=== PATIENT | female | born 1975 | race Caucasian/White ===

== ENCOUNTER 2017-05-07 01:45 | Observation (INO) | payer OTHER, MEDICAID ==
[~2017-05-07] VITALS: Ht 160 cm; Wt 59.0 kg
[~2017-05-07 01:45] MED LIST: AMOXICILLIN 50500 MG PO; ATIVAN1 MG PO; B-COMPLEX-VITA1 EACH PO; BENZONATATE100 MG PO; CEFDINIR300 MG PO; DIFLUCAN150 MG PO; DIPHENHIST50 MG PO; FIORICET 50-301 EACH PO; FLEXERIL PO; HYDROCODONE-AP1 EAC6 PO; HYDROCORTISONE5 MG PO; IBUPROFEN 600600 M1 PO; LINZESS290 MCG PO; LINZESS72 MCG PO; MEDROLDOSEPACK PO; NAPROSYN500 MG PO; NORCO 5-325 TA1 EACH PO; ONDANSETRON HCL4 M2 PO; PAMELOR; PREDNISONE 20 M20 M1 PO; PYRIDIUM100 M1 PO; ROBAXIN500 MG PO; TESSALON PERLE100 MG PO; TOPAMAX 25 MG T25 M1 PO; TRAMADOL 50 MG50 MG PO; ULTRAM 50MG TAB50 MG PO; UNISOM50 MG PO; VALERIAN450 MG PO; VITAMIN B-12500 MCG SL; VITAMIN D2000 UNIT; XANAX 0.25 MG0.25 MG PO; XANAX 0.5 MG0.5 MG PO; XARELTO15 MG PO; ZOFRAN ODT4 MG PO; ZOFRAN4 MG PO; [UNRECOGNIZED DRUG - REMARK]
[2017-05-07 01:51] VITALS: BP 140/85
[2017-05-07 02:26] LABS: ABSOLUTE LYMPHOCYTES 1.5 thou/uL (0.8-5.3); ABSOLUTE MONOCYTES 0.2 thou/uL (0.0-1.2); ABSOLUTE NEUTROPHILS 3.5 thou/uL (1.6-8.1); BASOPHILS 0.6 %; EOSINOPHILS 0.2 %; HEMATOCRIT 37.1 % (37.0-47.0); HEMOGLOBIN 12.2 gm/dL (12.0-15.0); LYMPHOCYTES 28.7 %; MCH 27.2 pg (26.0-34.0); MCHC 32.9 g/dL (28.0-37.0); MCV 82.6 fL (80.0-100.0); MONOCYTES 4.1 %; MPV 8.9 fl. (7.2-11.1); NUCLEATED RBCS 0 /100WBC; PLATELET COUNT* 171 thou/uL (150-400); POLYS 66.4 %; RDW-CV 15.3 % (10.5-14.5); WBC 5.3 thou/uL (4.0-11.0)
[2017-05-07 02:46] LABS: ANION GAP 9 mmol/L (7-16); BUN 4 mg/dL (7-18); CALCIUM 8.5 mg/dL (8.5-10.1); CHLORIDE 103 mmol/L (98-107); CO2 27 mmol/L (21-32); GLUCOSE 107 mg/dL (70-99); SODIUM 139 mmol/L (136-145)
[2017-05-07 02:47] LABS: POTASSIUM 2.6 mmol/L (3.5-5.1)
[2017-05-07 02:49] LABS: INFLUENZA A ANTIGEN None Detected (None Detect)
[2017-05-07 02:52] LABS: ALKALINE PHOSPHATASE 90 U/L (46-116); LIPASE 188 U/L (73-393); SGOT 14 U/L (15-37); SGPT 14 U/L (30-65)
[2017-05-07 02:53] LABS: ALBUMIN 3.4 g/dL (3.4-5.0); TOTAL BILIRUBIN < 0.1 mg/dL (<0.1-1.0); TOTAL PROTEIN 6.7 g/dL (6.4-8.2)
[2017-05-07 04:58] VITALS: BP 135/68
[2017-05-07 05:00] LABS: URINE BILIRUBIN NEGATIVE (Negative); URINE BLOOD 1+ (Negative); URINE CLARITY CLEAR; URINE COLOR YELLOW; URINE GLUCOSE-RANDOM NEGATIVE (Negative); URINE KETONES NEGATIVE (Negative); URINE LEUKOCYTES-REFLEX NEGATIVE (Negative); URINE NITRITE-REFLEX NEGATIVE (Negative); URINE PROTEIN NEGATIVE (Negative); URINE UROBILINOGEN 0.2 E.U./dl (0.2-1.0)
[2017-05-07 05:18] LABS: BACTERIA-REFLEX 1-9 Few /HPF (None Seen); CASTS None Seen /LPF (None Seen); CRYSTALS None Seen /LPF (None Seen); MUCUS 4-6 Moderate strn/LPF (None Seen); SQUAMOUS 4-10 Moderate /LPF (0-3); URINE RBC 3-10 Few /HPF (0-2); URINE WBC-REFLEX 0-5 Rare /HPF (0-5)
[2017-05-07 08:46] VITALS: BP 143/83
[2017-05-07 10:28] VITALS: BP 143/83
[2018-01-02] MEDS ORDERED: FOLIC ACID 40400 MC1 PO ×2 (16:50)
[2018-01-02] MEDS ORDERED: CORTEF10 MG PO ×2 (16:50)
[2018-01-02] MEDS ORDERED: VITAMIN D3400 UNIT PO ×3 (16:50→16:54)
[2018-01-02] MEDS ORDERED: VENLAFAXIN37.5 MG/1 PO ×2 (16:50)
[2018-01-02] MEDS ORDERED: MELATONIN3 MG PO ×2 (16:50)
[2018-01-02] MEDS ORDERED: DURAGESIC1 EAC2 TRANSDERM ×2 (16:50)
[2018-01-02] MEDS ORDERED: XANAX1 MG PO ×3 (16:50→16:52)
[2018-01-02] MEDS ORDERED: OMEPRAZOLE20 M2 PO ×2 (16:50)
== END 2017-05-07 14:42 | disposition home or self-care (01) ==
LOC: M.ERS 01:45 → M.2W 03:30 → M.TBA-ER 03:30 → M.2W 03:30
PROVIDERS: Emergency Medicine; ADMIT Internal Medicine
DX: J11.00 Influenza due to unidentified influenza virus with unspecified type of pneumonia (principal); G62.9 Polyneuropathy, unspecified; E27.40 Unspecified adrenocortical insufficiency; K58.9 Irritable bowel syndrome, unspecified; F32.9 Major depressive disorder, single episode, unspecified; F41.0 Panic disorder [episodic paroxysmal anxiety]; G93.5 Compression of brain; K21.9 Gastro-esophageal reflux disease without esophagitis; Z87.891 Personal history of nicotine dependence; Z86.711 Personal history of pulmonary embolism

== ENCOUNTER → 2017-05-15 | Outpatient (CLI) | payer OTHER, MEDICAID ==
[~2017-05-15] MED LIST changes: +BACTRIM DS TAB1 EACH PO; +CORTEF10 MG PO; +DURAGESIC1 EAC2 TRANSDERM; +FOLIC ACID 40400 MC1 PO; +FOLIC ACID0.4 MG PO; +MELATONIN3 MG PO; +MELATONIN5 M1 PO; +MIRALAX17 GM; +OMEPRAZOLE20 M2 PO; +OMEPRAZOLE40 MG PO; +ONDANSETRON HCL4 M2; +RELISTOR150 MG; +SLEEP AID50 MG PO; +TRULANCE3 MG; +VALERIAN ROOT100 MG PO; +VENLAFAXIN37.5 MG/1 PO; +VENTOLIN HFA 1818 GM INH; +VITAMIN D3400 UNIT PO; +WOMEN MULTIVIT1 EACH PO; +XANAX1 MG PO; +XARELTO20 MG; +ZOFRAN ODT4 MG DISSOLVE; +ZPAK PO
== END ==
LOC: M.ULTRA 13:00
DX: Z12.31 Encounter for screening mammogram for malignant neoplasm of breast (principal); Z86.711 Personal history of pulmonary embolism; Z86.718 Personal history of other venous thrombosis and embolism

== ENCOUNTER → 2017-05-29 | Outpatient (CLI) | payer OTHER, MEDICAID ==
[2017-05-29 16:48] LABS: CALCIUM 9.2 mg/dL (8.5-10.1); CREATININE 0.8 mg/dL (0.6-1.3); POTASSIUM 4.4 mmol/L (3.5-5.1)
== END ==
LOC: M.LAB 15:55
DX: N28.1 Cyst of kidney, acquired (principal); E27.40 Unspecified adrenocortical insufficiency

== ENCOUNTER → 2017-06-09 | Outpatient (CLI) | payer OTHER, MEDICAID | LOC: M.ULTRA 08:00 | DX: K76.0 Fatty (change of) liver, not elsewhere classified (principal) ==

== ENCOUNTER → 2017-06-19 | Outpatient (CLI) | payer OTHER, MEDICAID | LOC: M.RAD 10:57 | DX: K59.09 Other constipation (principal); E27.40 Unspecified adrenocortical insufficiency ==

== ENCOUNTER 2017-07-19 19:03 | Emergency (ER) | payer OTHER, MEDICAID ==
[~2017-07-19] VITALS: Ht 162.6 cm; Wt 63.5 kg
[~2017-07-19 19:03] MED LIST changes: -BACTRIM DS TAB1 EACH PO; -CORTEF10 MG PO; -DURAGESIC1 EAC2 TRANSDERM; -FOLIC ACID 40400 MC1 PO; -FOLIC ACID0.4 MG PO; -MELATONIN3 MG PO; -MELATONIN5 M1 PO; -MIRALAX17 GM; -OMEPRAZOLE20 M2 PO; -OMEPRAZOLE40 MG PO; -ONDANSETRON HCL4 M2; -RELISTOR150 MG; -SLEEP AID50 MG PO; -TRULANCE3 MG; -VALERIAN ROOT100 MG PO; -VENLAFAXIN37.5 MG/1 PO; -VENTOLIN HFA 1818 GM INH; -VITAMIN D3400 UNIT PO; -WOMEN MULTIVIT1 EACH PO; -XANAX1 MG PO; -XARELTO20 MG; -ZOFRAN ODT4 MG DISSOLVE; -ZPAK PO
[2017-07-19 19:43] LABS: ABSOLUTE EOSINOPHILS 0.1 thou/uL (0.0-0.7); ABSOLUTE LYMPHOCYTES 3.1 thou/uL (0.8-5.3); ABSOLUTE MONOCYTES 0.6 thou/uL (0.0-1.2); ABSOLUTE NEUTROPHILS 4.2 thou/uL (1.6-8.1); BASOPHILS 0.5 %; EOSINOPHILS 1.8 %; HEMOGLOBIN 10.8 gm/dL (12.0-15.0); LYMPHOCYTES 38.7 %; MCHC 32.7 g/dL (28.0-37.0); MCV 85.6 fL (80.0-100.0); MPV 8.8 fl. (7.2-11.1); NUCLEATED RBCS 0 /100WBC; PLATELET COUNT* 192 thou/uL (150-400); RBC 3.85 mil/uL (4.20-5.00); RDW-CV 15.1 % (10.5-14.5)
[2017-07-19 19:51] LABS: ANION GAP 6 mmol/L (7-16); BUN 8 mg/dL (7-18); CALCIUM 8.8 mg/dL (8.5-10.1); CHLORIDE 104 mmol/L (98-107); CO2 31 mmol/L (21-32); CREATININE 0.8 mg/dL (0.6-1.3); GLUCOSE 89 mg/dL (70-99); POTASSIUM 3.9 mmol/L (3.5-5.1); SODIUM 141 mmol/L (136-145)
[2017-07-19 19:52] LABS: INR 1.1; PROTIME 11.1 Seconds (9.20-11.50)
[2017-07-19 20:02] LABS: ALBUMIN 3.3 g/dL (3.4-5.0); ALKALINE PHOSPHATASE 101 U/L (46-116); LIPASE 144 U/L (73-393); NT-PRO BRAIN NAT PEPTIDE 34 pg/mL (<300); SGOT 26 U/L (15-37); SGPT 28 U/L (30-65); TOTAL BILIRUBIN 0.1 mg/dL (<0.1-1.0); TOTAL PROTEIN 6.6 g/dL (6.4-8.2); TROPONIN-I LEVEL <0.06 ng/mL (<0.06)
[2017-07-19] MEDS ORDERED: XARELTO20 MG (20:02)
[2017-07-19] MEDS ORDERED: MIRALAX17 GM (20:03)
[2017-07-19 21:39] VITALS: BP 111/68
--- NOTE | 2017-07-20 10:07 | EKG ---
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: LINDA : 1975 Requested By: Fay Alonzo Order Number: [id number] MD: José Laguna Measurements Intervals [place] Rate: 93 P: 65 [place]: 127 QRS: 67 QRSD: 95 T: 53 QT: 362 QTc: 451 Interpretive Statements Sinus rhythm Probable left atrial enlargement RSR' in V1 or V2, right VCD or RVH Nonspecific T abnormalities, lateral leads Compared to ECG 08/25/2014 08:17:03 RSR' in V1 or V2 now present Electronically Signed On 07-20-2017 10:07:43 CDT by José Laguna [email or web address] <ELECTRONICALLY SIGNED> By: José Laguna MD, [facility] 07/20/17 1007 191 09 José Laguna MD, [facility] /EPI
== END 2017-07-19 21:40 | disposition home or self-care (01) ==
LOC: M.ERS 19:03
PROVIDERS: Emergency Medicine
DX: R07.89 Other chest pain (principal); R05 Cough; F41.0 Panic disorder [episodic paroxysmal anxiety]; K21.9 Gastro-esophageal reflux disease without esophagitis; F32.9 Major depressive disorder, single episode, unspecified; M79.7 Fibromyalgia; Z98.890 Other specified postprocedural states; Z88.8 Allergy status to other drugs, medicaments and biological substances

== ENCOUNTER → 2017-10-16 | Outpatient (CLI) | payer OTHER, MEDICAID ==
[~2017-10-16] MED LIST changes: +BACTRIM DS TAB1 EACH PO; +CORTEF10 MG PO; +DURAGESIC1 EAC2 TRANSDERM; +FOLIC ACID 40400 MC1 PO; +FOLIC ACID0.4 MG PO; +MELATONIN3 MG PO; +MELATONIN5 M1 PO; +MIRALAX17 GM; +OMEPRAZOLE20 M2 PO; +OMEPRAZOLE40 MG PO; +ONDANSETRON HCL4 M2; +RELISTOR150 MG; +SLEEP AID50 MG PO; +TRULANCE3 MG; +VALERIAN ROOT100 MG PO; +VENLAFAXIN37.5 MG/1 PO; +VENTOLIN HFA 1818 GM INH; +VITAMIN D3400 UNIT PO; +WOMEN MULTIVIT1 EACH PO; +XANAX1 MG PO; +XARELTO20 MG; +ZOFRAN ODT4 MG DISSOLVE; +ZPAK PO
== END ==
LOC: M.ULTRA 10-13 17:30 → M.CT 15:00 → M.ULTRA 10-19 10:30
DX: M79.89 Other specified soft tissue disorders (principal); R06.02 Shortness of breath; R51 Headache; Z86.711 Personal history of pulmonary embolism; Z86.718 Personal history of other venous thrombosis and embolism

== ENCOUNTER → 2017-10-22 | Outpatient (CLI) | payer OTHER, MEDICAID ==
[2017-10-22 16:05] LABS: URINE BILIRUBIN NEGATIVE (Negative); URINE BLOOD 1+ (Negative); URINE CLARITY CLEAR; URINE COLOR YELLOW; URINE GLUCOSE-RANDOM NEGATIVE (Negative); URINE KETONES NEGATIVE (Negative); URINE LEUKOCYTES NEGATIVE (Negative); URINE NITRITE NEGATIVE (Negative); URINE PROTEIN NEGATIVE (Negative); URINE SPECIFIC GRAVITY 1.025 (1.005-1.030); URINE UROBILINOGEN 0.2 E.U./dl (0.2-1.0)
[2017-10-22 16:18] LABS: BACTERIA 1-9 Few /HPF (None Seen); MUCUS 0-3 Light strn/LPF (None Seen); SQUAMOUS >10 Many /LPF (0-3); URINE RBC 0-2 Rare /HPF (0-2)
[2017-10-22 16:20] LABS: CASTS None Seen /LPF (None Seen); CRYSTALS None Seen /LPF (None Seen); URINE WBC 0-5 Rare /HPF (0-5)
== END ==
LOC: M.LAB 15:37
PROVIDERS: Obstetrics & Gynecology
DX: R39.89 Other symptoms and signs involving the genitourinary system (principal)

== ENCOUNTER → 2017-10-23 | Outpatient (CLI) | payer OTHER, MEDICAID ==
[2017-10-28 03:12] LABS: EBV EA IgG <9.0 U/mL (0.0-8.9); EBV VCA IgM <36.0 U/mL (0.0-35.9)
== END ==
LOC: M.LAB 15:30
PROVIDERS: Obstetrics & Gynecology
DX: R53.83 Other fatigue (principal)

== ENCOUNTER 2017-10-27 19:46 | Emergency (ER) | payer OTHER, MEDICAID ==
[~2017-10-27] VITALS: Ht 162.6 cm; Wt 64.9 kg
[~2017-10-27 19:46] MED LIST changes: -BACTRIM DS TAB1 EACH PO; -CORTEF10 MG PO; -DURAGESIC1 EAC2 TRANSDERM; -FOLIC ACID 40400 MC1 PO; -FOLIC ACID0.4 MG PO; -MELATONIN3 MG PO; -MELATONIN5 M1 PO; -OMEPRAZOLE20 M2 PO; -OMEPRAZOLE40 MG PO; -ONDANSETRON HCL4 M2; -RELISTOR150 MG; -SLEEP AID50 MG PO; -TRULANCE3 MG; -VALERIAN ROOT100 MG PO; -VENLAFAXIN37.5 MG/1 PO; -VENTOLIN HFA 1818 GM INH; -VITAMIN D3400 UNIT PO; -WOMEN MULTIVIT1 EACH PO; -XANAX1 MG PO; -ZOFRAN ODT4 MG DISSOLVE; -ZPAK PO
[2017-10-27 20:38] LABS: ABSOLUTE BASOPHILS 0.1 thou/uL (0.0-0.2); ABSOLUTE EOSINOPHILS 0.2 thou/uL (0.0-0.7); ABSOLUTE LYMPHOCYTES 3.5 thou/uL (0.8-5.3); ABSOLUTE MONOCYTES 0.5 thou/uL (0.0-1.2); ABSOLUTE NEUTROPHILS 3.8 thou/uL (1.6-8.1); BASOPHILS 0.7 %; HEMOGLOBIN 10.9 gm/dL (12.0-15.0); LYMPHOCYTES 43.7 %; MCH 26.4 pg (26.0-34.0); MCV 82.6 fL (80.0-100.0); MONOCYTES 6.2 %; MPV 8.3 fl. (7.2-11.1); NUCLEATED RBCS 0 /100WBC; PLATELET COUNT* 228 thou/uL (150-400); POLYS 47.4 %; RBC 4.12 mil/uL (4.20-5.00); RDW-CV 14.8 % (10.5-14.5)
[2017-10-27 20:50] LABS: CALCIUM 8.6 mg/dL (8.5-10.1); CREATININE 0.9 mg/dL (0.6-1.3); POTASSIUM 3.5 mmol/L (3.5-5.1)
[2017-10-27 20:55] LABS: ALBUMIN 3.7 g/dL (3.4-5.0); TOTAL BILIRUBIN 0.2 mg/dL (<0.1-1.0); TOTAL PROTEIN 7.4 g/dL (6.4-8.2)
[2017-10-27 21:24] LABS: URINE BILIRUBIN NEGATIVE (Negative); URINE BLOOD 1+ (Negative); URINE CLARITY CLEAR; URINE COLOR STRAW; URINE GLUCOSE-RANDOM NEGATIVE (Negative); URINE KETONES NEGATIVE (Negative); URINE LEUKOCYTES-REFLEX NEGATIVE (Negative); URINE NITRITE-REFLEX NEGATIVE (Negative); URINE PROTEIN NEGATIVE (Negative); URINE SPECIFIC GRAVITY <= 1.005 (1.005-1.030); URINE UROBILINOGEN 0.2 E.U./dl (0.2-1.0)
[2017-10-27 21:30] LABS: AMP/METHAMP Negative (Negative); BARBITURATES Negative (Negative); BENZODIAZEPINES POSITIVE (Negative); COCAINE Negative (Negative); METHADONE Negative (Negative); OPIATES Negative (Negative); PCP Negative (Negative); THC Negative (Negative)
[2017-10-27 21:42] LABS: BACTERIA-REFLEX 1-9 Few /HPF (None Seen); CASTS None Seen /LPF (None Seen); CRYSTALS None Seen /LPF (None Seen); SQUAMOUS 4-10 Moderate /LPF (0-3); URINE RBC 3-10 Few /HPF (0-2); URINE WBC-REFLEX 0-5 Rare /HPF (0-5)
[2017-10-27 22:14] VITALS: BP 113/78
== END 2017-10-27 22:15 | disposition home or self-care (01) ==
LOC: M.ERS 19:46
PROVIDERS: Nurse Practitioner Family
DX: R19.7 Diarrhea, unspecified (principal); I50.9 Heart failure, unspecified; F32.9 Major depressive disorder, single episode, unspecified; F41.9 Anxiety disorder, unspecified; K21.9 Gastro-esophageal reflux disease without esophagitis; M79.7 Fibromyalgia; Z88.8 Allergy status to other drugs, medicaments and biological substances

== ENCOUNTER → 2017-11-01 | Outpatient (CLI) | payer OTHER, MEDICAID ==
[~2017-11-01] MED LIST changes: +BACTRIM DS TAB1 EACH PO; +CORTEF10 MG PO; +DURAGESIC1 EAC2 TRANSDERM; +FOLIC ACID 40400 MC1 PO; +FOLIC ACID0.4 MG PO; +MELATONIN3 MG PO; +MELATONIN5 M1 PO; +OMEPRAZOLE20 M2 PO; +OMEPRAZOLE40 MG PO; +ONDANSETRON HCL4 M2; +RELISTOR150 MG; +SLEEP AID50 MG PO; +TRULANCE3 MG; +VALERIAN ROOT100 MG PO; +VENLAFAXIN37.5 MG/1 PO; +VENTOLIN HFA 1818 GM INH; +VITAMIN D3400 UNIT PO; +WOMEN MULTIVIT1 EACH PO; +XANAX1 MG PO; +ZOFRAN ODT4 MG DISSOLVE; +ZPAK PO
[2017-11-01 17:16] LABS: ABSOLUTE BASOPHILS 0.1 thou/uL (0.0-0.2); ABSOLUTE EOSINOPHILS 0.1 thou/uL (0.0-0.7); ABSOLUTE LYMPHOCYTES 2.3 thou/uL (0.8-5.3); ABSOLUTE MONOCYTES 0.3 thou/uL (0.0-1.2); ABSOLUTE NEUTROPHILS 3.4 thou/uL (1.6-8.1); BASOPHILS 0.8 %; EOSINOPHILS 1.1 %; HEMATOCRIT 35.6 % (37.0-47.0); HEMOGLOBIN 11.2 gm/dL (12.0-15.0); LYMPHOCYTES 37.6 %; MCH 26.5 pg (26.0-34.0); MCHC 31.6 g/dL (28.0-37.0); MCV 83.8 fL (80.0-100.0); MONOCYTES 4.6 %; MPV 9.1 fl. (7.2-11.1); NUCLEATED RBCS 0 /100WBC; PLATELET COUNT* 220 thou/uL (150-400); POLYS 55.9 %; RBC 4.24 mil/uL (4.20-5.00); RDW-CV 14.7 % (10.5-14.5); WBC 6.1 thou/uL (4.0-11.0)
[2017-11-01 17:27] LABS: ALBUMIN 3.8 g/dL (3.4-5.0); CALCIUM 8.7 mg/dL (8.5-10.1); CREATININE 0.8 mg/dL (0.6-1.3); POTASSIUM 3.9 mmol/L (3.5-5.1); TOTAL BILIRUBIN 0.2 mg/dL (<0.1-1.0); TOTAL PROTEIN 7.7 g/dL (6.4-8.2)
[2017-11-01 18:18] LABS: ESR (SEDRATE) 12 mm/hr (0-20)
== END ==
LOC: M.LAB 14:04
DX: R53.83 Other fatigue (principal); R41.0 Disorientation, unspecified

== ENCOUNTER 2018-01-02 16:17 | Emergency (ER) | payer OTHER, MEDICAID ==
[~2018-01-02] VITALS: Ht 162.6 cm; Wt 59.0 kg
[~2018-01-02 16:17] MED LIST changes: -BACTRIM DS TAB1 EACH PO; -CORTEF10 MG PO; -DURAGESIC1 EAC2 TRANSDERM; -FOLIC ACID 40400 MC1 PO; -FOLIC ACID0.4 MG PO; -MELATONIN3 MG PO; -MELATONIN5 M1 PO; -OMEPRAZOLE20 M2 PO; -OMEPRAZOLE40 MG PO; -ONDANSETRON HCL4 M2; -RELISTOR150 MG; -SLEEP AID50 MG PO; -TRULANCE3 MG; -VALERIAN ROOT100 MG PO; -VENLAFAXIN37.5 MG/1 PO; -VENTOLIN HFA 1818 GM INH; -VITAMIN D3400 UNIT PO; -WOMEN MULTIVIT1 EACH PO; -XANAX1 MG PO; -ZOFRAN ODT4 MG DISSOLVE; -ZPAK PO
[2018-01-02] MEDS ORDERED: MELATONIN3 MG PO (16:50)
[2018-01-02] MEDS ORDERED: FOLIC ACID 40400 MC1 PO (16:50)
[2018-01-02] MEDS ORDERED: RELISTOR150 MG (16:50)
[2018-01-02] MEDS ORDERED: CORTEF10 MG PO (16:50)
[2018-01-02] MEDS ORDERED: XANAX1 MG PO ×2 (16:50→16:52)
[2018-01-02] MEDS ORDERED: DURAGESIC1 EAC2 TRANSDERM (16:50)
[2018-01-02] MEDS ORDERED: VENLAFAXIN37.5 MG/1 PO (16:50)
[2018-01-02] MEDS ORDERED: OMEPRAZOLE20 M2 PO (16:50)
[2018-01-02] MEDS ORDERED: VITAMIN D3400 UNIT PO ×2 (16:50→16:54)
[2018-01-02] MEDS ORDERED: TRULANCE3 MG (16:51)
[2018-01-02] MEDS ORDERED: ONDANSETRON HCL4 M2 (16:51)
[2018-01-02] MEDS ORDERED: ZOFRAN ODT4 MG DISSOLVE (16:51)
[2018-01-02] MEDS ORDERED: WOMEN MULTIVIT1 EACH PO (16:51)
[2018-01-02] MEDS ORDERED: OMEPRAZOLE40 MG PO (16:52)
[2018-01-02] MEDS ORDERED: VALERIAN ROOT100 MG PO (16:53)
[2018-01-02] MEDS ORDERED: MELATONIN5 M1 PO (16:53)
[2018-01-02] MEDS ORDERED: SLEEP AID50 MG PO (16:54)
[2018-01-02] MEDS ORDERED: FOLIC ACID0.4 MG PO (16:54)
[2018-01-02] MEDS ORDERED: PREDNISONE 20 M20 M1 PO (16:56)
[2018-01-02] MEDS ORDERED: VENTOLIN HFA 1818 GM INH (16:56)
[2018-01-02] MEDS ORDERED: BACTRIM DS TAB1 EACH PO (16:56)
[2018-01-02 17:09] VITALS: BP 121/64
--- NOTE | 2018-01-03 12:56 | EKG ---
[place] [address] ELECTROCARDIOGRAM REPORT Name: JONEL HAILE Room: [facility]#: [id number] Admission: 01/02/18 Attend Phys: Discharge: 01/02/18 Date of : 71 Report #: [id number] THIS REPORT FOR: //name// [facility] ED Test Date: 2018-01-02 Test Time: 16:29:05 Pat Name: JONEL ONEILL Department: Room: Gender: F Manager Animal: Kaitlin CARRION : 1975 Requested By: Endy Brennan Order Number: [id number] MD: Isaias Mcnally Measurements Intervals [place] Rate: 87 P: 73 [place]: 125 QRS: 77 QRSD: 94 T: 49 QT: 375 QTc: 451 Interpretive Statements Sinus rhythm Abnormal R-wave progression, early transition Compared to ECG 07/19/2017 19:10:02 Right ventricular hypertrophy no longer present T-wave abnormality no longer present Electronically Signed On 01-03-2018 12:56:02 CDT by Isaias Mcnally [email or web address] <ELECTRONICALLY SIGNED> By: Isaias Mcnally MD, FAC 01/03/18 1256 [id number] [id number] Isaias Mcnally MD, [facility] /EPI
== END 2018-01-02 17:10 | disposition home or self-care (01) ==
LOC: M.ERS 16:17
DX: J40 Bronchitis, not specified as acute or chronic (principal); F41.0 Panic disorder [episodic paroxysmal anxiety]; I50.9 Heart failure, unspecified; K21.9 Gastro-esophageal reflux disease without esophagitis; F32.9 Major depressive disorder, single episode, unspecified; M79.7 Fibromyalgia; Z88.8 Allergy status to other drugs, medicaments and biological substances

== ENCOUNTER → 2018-01-07 | Outpatient (CLI) | payer OTHER, MEDICAID ==
[~2018-01-07] MED LIST changes: +BACTRIM DS TAB1 EACH PO; +CORTEF10 MG PO; +DURAGESIC1 EAC2 TRANSDERM; +FOLIC ACID 40400 MC1 PO; +FOLIC ACID0.4 MG PO; +MELATONIN3 MG PO; +MELATONIN5 M1 PO; +OMEPRAZOLE20 M2 PO; +OMEPRAZOLE40 MG PO; +ONDANSETRON HCL4 M2; +RELISTOR150 MG; +SLEEP AID50 MG PO; +TRULANCE3 MG; +VALERIAN ROOT100 MG PO; +VENLAFAXIN37.5 MG/1 PO; +VENTOLIN HFA 1818 GM INH; +VITAMIN D3400 UNIT PO; +WOMEN MULTIVIT1 EACH PO; +XANAX1 MG PO; +ZOFRAN ODT4 MG DISSOLVE; +ZPAK PO
[2018-01-07 17:04] LABS: CALCIUM 8.6 mg/dL (8.5-10.1); CREATININE 0.9 mg/dL (0.6-1.3); POTASSIUM 3.7 mmol/L (3.5-5.1)
== END ==
LOC: M.LAB 16:35
PROVIDERS: Internal Medicine Gastroenterology
DX: K59.00 Constipation, unspecified (principal); F32.9 Major depressive disorder, single episode, unspecified; Z87.891 Personal history of nicotine dependence; Z79.899 Other long term (current) drug therapy; Z88.8 Allergy status to other drugs, medicaments and biological substances

== ENCOUNTER 2018-01-23 21:12 | Emergency (ER) | payer OTHER, MEDICAID ==
[~2018-01-23] VITALS: Ht 160 cm; Wt 63.5 kg
[~2018-01-23 21:12] MED LIST changes: -ZPAK PO
[2018-01-23] MEDS ORDERED: ZPAK PO (21:28)
[2018-01-23 21:38] LABS: ABSOLUTE BASOPHILS 0.1 thou/uL (0.0-0.2); ABSOLUTE EOSINOPHILS 0.2 thou/uL (0.0-0.7); ABSOLUTE LYMPHOCYTES 3.5 thou/uL (0.8-5.3); ABSOLUTE MONOCYTES 0.6 thou/uL (0.0-1.2); ABSOLUTE NEUTROPHILS 3.7 thou/uL (1.6-8.1); BASOPHILS 0.9 %; EOSINOPHILS 2.7 %; HEMATOCRIT 32.8 % (37.0-47.0); HEMOGLOBIN 10.4 gm/dL (12.0-15.0); LYMPHOCYTES 43.1 %; MCHC 31.8 g/dL (28.0-37.0); MCV 81.8 fL (80.0-100.0); MONOCYTES 7.7 %; MPV 8.6 fl. (7.2-11.1); NUCLEATED RBCS 0 /100WBC; PLATELET COUNT* 232 thou/uL (150-400); POLYS 45.6 %; RBC 4.01 mil/uL (4.20-5.00); RDW-CV 15.5 % (10.5-14.5); WBC 8.1 thou/uL (4.0-11.0)
[2018-01-23 21:51] LABS: APTT 24.6 Seconds (25.0-31.3); PROTIME 9.9 Seconds (9.20-11.50)
[2018-01-23 22:02] LABS: CALCIUM 8.7 mg/dL (8.5-10.1); CREATININE 0.9 mg/dL (0.6-1.3); POTASSIUM 3.4 mmol/L (3.5-5.1)
[2018-01-23 22:06] LABS: ALBUMIN 3.5 g/dL (3.4-5.0); TOTAL BILIRUBIN 0.1 mg/dL (<0.1-1.0); TOTAL PROTEIN 6.7 g/dL (6.4-8.2)
[2018-01-23 22:12] LABS: NT-PRO BRAIN NAT PEPTIDE 66 pg/mL (<300); TROPONIN-I LEVEL <0.06 ng/mL (<0.06)
[2018-01-23 22:32] VITALS: BP 108/72
--- NOTE | 2018-01-24 15:00 | EKG ---
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1975 Requested By: Endy Brennan Order Number: [id number] MD: Joey Younger Measurements Intervals [place] Rate: 93 P: 66 [place]: 128 QRS: 65 QRSD: 94 T: 31 QT: 368 QTc: 458 Interpretive Statements Sinus rhythm Probable left atrial enlargement RSR' in V1 or V2, right VCD or RVH Compared to ECG 01/02/2018 16:29:05 Right ventricular hypertrophy now present RSR' in V1 or V2 now present Electronically Signed On 01-24-2018 15:00:24 CDT by Joey Younger [email or web address] <ELECTRONICALLY SIGNED> By: Joey Younger MD, FACC 01/24/18 1500 23 23 Joey Younger MD, FACC /EPI
== END 2018-01-23 22:34 | disposition home or self-care (01) ==
LOC: M.ERS 21:12
PROVIDERS: Family Medicine
DX: R07.89 Other chest pain (principal); R53.1 Weakness; I50.9 Heart failure, unspecified; K58.9 Irritable bowel syndrome, unspecified; K21.9 Gastro-esophageal reflux disease without esophagitis; F32.9 Major depressive disorder, single episode, unspecified; F41.9 Anxiety disorder, unspecified; M79.7 Fibromyalgia; M19.90 Unspecified osteoarthritis, unspecified site; Z88.8 Allergy status to other drugs, medicaments and biological substances; Z98.890 Other specified postprocedural states

== ENCOUNTER → 2018-03-09 | Outpatient (CLI) | payer OTHER, MEDICAID ==
[~2018-03-09] MED LIST changes: +ZPAK PO
== END ==
LOC: M.RAD 15:15
DX: M25.571 Pain in right ankle and joints of right foot (principal)

== ENCOUNTER → 2018-03-11 | Outpatient (CLI) | payer OTHER, MEDICAID | LOC: M.CT 16:29 | DX: R04.2 Hemoptysis (principal); R91.8 Other nonspecific abnormal finding of lung field ==

== ENCOUNTER 2018-03-27 17:57 | Emergency (ER) | payer OTHER, MEDICARE, MEDICAID ==
[~2018-03-27] VITALS: Ht 165.1 cm; Wt 71.7 kg
[2018-03-27] MEDS ORDERED: EFFEXOR 5050 MG/1 T1 PO (18:15)
[2018-03-27] MEDS ORDERED: DURAGESIC1 EAC2 INTRADERM (18:15)
[2018-03-27] MEDS ORDERED: XARELTO20 MG PO (18:17)
[2018-03-27 18:32] LABS: ABSOLUTE BASOPHILS 0.1 thou/uL (0.0-0.2); ABSOLUTE EOSINOPHILS 0.1 thou/uL (0.0-0.7); ABSOLUTE LYMPHOCYTES 2.8 thou/uL (0.8-5.3); ABSOLUTE MONOCYTES 0.6 thou/uL (0.0-1.2); ABSOLUTE NEUTROPHILS 3.3 thou/uL (1.6-8.1); BASOPHILS 1.2 %; HEMATOCRIT 34.4 % (37.0-47.0); HEMOGLOBIN 10.8 gm/dL (12.0-15.0); LYMPHOCYTES 40.4 %; MCH 25.3 pg (26.0-34.0); MCHC 31.4 g/dL (28.0-37.0); MCV 80.4 fL (80.0-100.0); MPV 8.9 fl. (7.2-11.1); NUCLEATED RBCS 0 /100WBC; PLATELET COUNT* 238 thou/uL (150-400); POLYS 48.4 %; RBC 4.28 mil/uL (4.20-5.00); RDW-CV 15.2 % (10.5-14.5); WBC 6.9 thou/uL (4.0-11.0)
[2018-03-27 18:37] LABS: CALCIUM 8.7 mg/dL (8.5-10.1); CREATININE 0.9 mg/dL (0.6-1.3); POTASSIUM 3.8 mmol/L (3.5-5.1)
[2018-03-27 18:42] LABS: ALBUMIN 3.4 g/dL (3.4-5.0); TOTAL BILIRUBIN 0.1 mg/dL (<0.1-1.0); TOTAL PROTEIN 7.1 g/dL (6.4-8.2)
[2018-03-27 19:06] LABS: URINE BILIRUBIN NEGATIVE (Negative); URINE BLOOD 1+ (Negative); URINE CLARITY SL CLOUDY; URINE COLOR YELLOW; URINE GLUCOSE-RANDOM NEGATIVE (Negative); URINE KETONES NEGATIVE (Negative); URINE LEUKOCYTES-REFLEX NEGATIVE (Negative); URINE NITRITE-REFLEX NEGATIVE (Negative); URINE PROTEIN NEGATIVE (Negative); URINE SPECIFIC GRAVITY >= 1.030 (1.005-1.030); URINE UROBILINOGEN 0.2 E.U./dl (0.2-1.0)
[2018-03-27 19:17] LABS: SQUAMOUS >10 Many /LPF (0-3)
[2018-03-27 19:18] LABS: BACTERIA-REFLEX >30 Many /HPF (None Seen); MUCUS >6 Heavy strn/LPF (None Seen); URINE RBC 3-10 Few /HPF (0-2); URINE WBC-REFLEX 0-5 Rare /HPF (0-5)
[2018-03-27 19:19] LABS: CASTS None Seen /LPF (None Seen); CRYSTALS None Seen /LPF (None Seen)
[2018-03-27] MEDS ORDERED: ZOFRAN ODT4 MG PO (22:34)
[2018-03-27 22:47] VITALS: BP 100/66
--- NOTE | 2018-03-28 13:00 | EKG ---
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: Herbert VITALE : 1975 Requested By: Winnie Valentine Order Number: [id number] MD: Isaias Mcnally Measurements Intervals [place] Rate: 81 P: 70 MS: 136 QRS: 76 QRSD: 90 T: 50 QT: 396 QTc: 460 Interpretive Statements Sinus rhythm Probable left atrial enlargement RSR' in V1 or V2, right VCD or RVH Compared to ECG 01/23/2018 21:24:35 No significant changes Electronically Signed On 03-28-2018 12:59:57 MANAGER OF COMPLIANCE by Isaias Mcnally [email or web address] <ELECTRONICALLY SIGNED> By: Isaias Mcnally MD, FACC 03/28/18 1259 24 24 Isaias Mcnally MD, FAC /EPI
== END 2018-03-27 22:47 | disposition home or self-care (01) ==
LOC: M.ERS 17:57
PROVIDERS: Physician Assistant
DX: N83.202 Unspecified ovarian cyst, left side (principal); M62.838 Other muscle spasm; F41.0 Panic disorder [episodic paroxysmal anxiety]; I49.01 Ventricular fibrillation; I50.9 Heart failure, unspecified; K58.9 Irritable bowel syndrome, unspecified; K21.9 Gastro-esophageal reflux disease without esophagitis; F32.9 Major depressive disorder, single episode, unspecified; M79.7 Fibromyalgia; Z88.8 Allergy status to other drugs, medicaments and biological substances

== ENCOUNTER → 2018-03-31 | Outpatient (CLI) | payer OTHER, MEDICARE, MEDICAID ==
[~2018-03-31] MED LIST changes: +DURAGESIC1 EAC2 INTRADERM; +EFFEXOR 5050 MG/1 T1 PO; +XARELTO20 MG PO
[2018-03-31 23:10] LABS: CA 125 14.6 U/mL (0.0-38.1)
== END ==
LOC: M.LAB 15:14
PROVIDERS: Obstetrics & Gynecology
DX: N83.202 Unspecified ovarian cyst, left side (principal)

== ENCOUNTER → 2018-06-01 | Outpatient (CLI) | payer OTHER, MEDICARE, MEDICAID | LOC: M.ULTRA 14:00 | DX: N83.202 Unspecified ovarian cyst, left side (principal) ==

== ENCOUNTER 2019-04-12 19:45 | Emergency (ER) | payer OTHER, MEDICARE, MEDICAID ==
[~2019-04-12] VITALS: Ht 162.6 cm; Wt 68.0 kg
[~2019-04-12 19:45] MED LIST changes: +NORCO 5-325 TA1 EAC1 PO
[2019-04-12 19:55] VITALS: BP 105/69
[2019-04-12] MEDS ORDERED: FLOMAX0.4 MG PO (20:04)
[2019-04-12] MEDS ORDERED: FOLBIC RF TABL1 EACH INJECTION (20:04)
[2019-04-12] MEDS ORDERED: INCRUSE ELLI62.5 MCG INH (20:06)
[2019-04-12] MEDS ORDERED: PROBIOTIC250 MG PO (20:07)
[2019-04-12] MEDS ORDERED: FLORASTOR250 MG PO (20:07)
[2019-04-12] MEDS ORDERED: DULCOLAX STOOL100 M1 PO (20:07)
[2019-04-12] MEDS ORDERED: SOLU-CORTEF100 MG INH (20:08)
[2019-04-12] MEDS ORDERED: TOPAMAX100 MG PO (20:08)
[2019-04-12] MEDS ORDERED: hydrocortisone PO (20:10)
[2019-04-12] MEDS ORDERED: DIFLUCAN200 MG PO (20:45)
== END 2019-04-12 21:10 | disposition home or self-care (01) ==
LOC: M.ERS 19:45
DX: R21 Rash and other nonspecific skin eruption (principal); K21.9 Gastro-esophageal reflux disease without esophagitis; J44.9 Chronic obstructive pulmonary disease, unspecified; I50.9 Heart failure, unspecified; M79.7 Fibromyalgia; Z88.8 Allergy status to other drugs, medicaments and biological substances; Z88.2 Allergy status to sulfonamides; Z88.5 Allergy status to narcotic agent